=== PATIENT | female | born 1950 | race Caucasian/White ===

== ENCOUNTER 2021-05-19 14:09 | Emergency (ER) | payer MEDICARE, MEDICAID ==
[~2021-05-19] VITALS: Ht 167.6 cm; Wt 56.8 kg
[2021-05-19 14:20] VITALS: TEMP 98.6
[2021-05-19] MEDS ORDERED: PEN-VEE K500 MG PO (14:32)
[2021-05-19 14:36] VITALS: BP 131/80; PULSE 92
== END 2021-05-19 14:44 | disposition home or self-care (01) ==
LOC: COL.ER 14:09
DX: K08.89 Other specified disorders of teeth and supporting structures (principal)